=== PATIENT | female | born 1960 | race Hispanic/Latino ===

== ENCOUNTER 2019-07-30 23:03 | Emergency (ER) | payer OTHER ==
[2019-07-31] MEDS ORDERED: LIDOCAINE HCL 2% VISCOUS 15 ML UDCUP ONE (00:38)
[2019-07-31] MEDS ORDERED: MAG HYDROX/AL HYDROX/SIMETH ES 30 ML SUSP UDCUP ONE (00:39)
[2019-07-31] MEDS ORDERED: ONDANSETRON HCL 4 MG/2 ML VIAL ONE (00:39)
[2019-07-31] MEDS ORDERED: AMOXICILLIN/POTASSIUM CLAV 500-125 TABLET PO ONE (00:39)
== END 2019-07-31 01:25 | disposition home or self-care (01) ==
LOC: EDH 23:03
DX: T17.228A Food in pharynx causing other injury, initial encounter (principal); R13.10 Dysphagia, unspecified; Z90.49 Acquired absence of other specified parts of digestive tract; Z90.710 Acquired absence of both cervix and uterus; Z72.0 Tobacco use; X58.XXXA Exposure to other specified factors, initial encounter; Y93.89 Activity, other specified; Y92.89 Other specified places as the place of occurrence of the external cause; Y99.8 Other external cause status
CPT/HCPCS: 70360; 96374; 96376; 99284; J2405